=== PATIENT | male | born 2000 | race American Indian/Alaskan Native ===

== ENCOUNTER 2021-08-03 11:47 | Emergency (ER) | payer OTHER ==
[2021-08-03 11:59] VITALS: BP 128/70
[2021-08-03] MEDS ORDERED: ACETAMINOPHEN 325 MG TAB PO ONE (12:35)
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
== END 2021-08-03 18:37 | disposition home or self-care (01) ==
LOC: ED 11:47
DX: S09.90XA Unspecified injury of head, initial encounter (principal); M25.512 Pain in left shoulder; R51.9 Headache, unspecified; R42 Dizziness and giddiness; V49.49XA Driver injured in collision with other motor vehicles in traffic accident, initial encounter; Y93.89 Activity, other specified; Y92.89 Other specified places as the place of occurrence of the external cause; Y99.8 Other external cause status
CPT/HCPCS: 70450; 99284